=== PATIENT | female | born 1980 | race Caucasian/White ===

== ENCOUNTER 2018-10-29 21:11 | Emergency (ER) | payer OTHER ==
[2018-10-29 22:02] LABS: BILIRUBIN,URINE NEGATIVE (NEGATIVE); KETONES,URINE (UA) NEGATIVE (NEGATIVE); OCCULT BLOOD,URINE SMALL (NEGATIVE); PH,URINE 5.5 PH (5.0-7.5); PROTEIN,URINE 30 mg/dL (NEGATIVE)
[2018-10-29 22:05] LABS: HCG UR QUAL NEGATIVE
[2018-10-29 22:09] LABS: BASOPHILS % (AUTO) 0.3 %; HGB - HEMOGLOBIN 14.7 g/dL (12.0-16.0); LYMPHOCYTES # (AUTO) 0.6 10^3/uL (1.5-3.5); MEAN CORPUSCULAR HEMOGLOBIN 29.4 pg (27.0-31.0); MEAN CORPUSCULAR HGB CONC 33.3 g/dL (32.0-36.0); MEAN CORPUSCULAR VOLUME 88.5 fL (81.0-99.0); MEAN PLATELET VOLUME 8.7 fL (7.9-10.8); MONOCYTES # (AUTO) 0.9 10^3/uL (0.0-1.0); MONOCYTES % (AUTO) 6.9 %; NEUTROPHILS # (AUTO) 11.1 10^3/uL (1.5-6.6); NEUTROPHILS % (AUTO) 87.8 %; PLT - PLATELET COUNT 234 10^3/uL (130-450); RED BLOOD COUNT 4.98 10^6/uL (4.20-5.40); RED CELL DISTRIBUTION WIDTH 14.2 % (12.0-15.0); WHITE BLOOD COUNT 12.6 x10^3/uL (4.8-10.8)
[2018-10-29 22:13] LABS: CLARITY,URINE CLEAR (CLEAR)
[2018-10-29 22:16] LABS: BACTERIA,URINE Rare /HPF (None Seen); RBC,URINE 0-5 /HPF (0-5); SQUAMOUS EPITHELIAL CELL,UR MOD Squamous (<= Few)
[2018-10-29 22:24] LABS: ALBUMIN 4.1 g/dL (3.2-5.5); ALBUMIN/GLOBULIN RATIO 1.1 (1.0-2.2); CALCIUM 9.9 mg/dL (8.5-10.3); CREATININE 0.7 mg/dL (0.4-1.0); TOTAL PROTEIN 7.7 g/dL (6.7-8.2)
[2018-10-29] MEDS ORDERED: HYDROmorphone 1 MG/ML CARPUJECT IVP STA (22:42)
[2018-10-29] MEDS ORDERED: ONDANSETRON 4 MG/2 ML VIAL IVP STA (22:42)
--- NOTE | 2018-10-29 22:56 | ED Physician Documentation ---
<Tesha Mclaughlin - Last Filed: 10/29/18 22:53> PD HPI ABD PAIN - Stated complaint Stated Complaint: FEVER - Chief complaint Chief Complaint: Abd Pain - History obtained from History obtained from: Patient, Family - History of Present Illness Timing - onset: Other (since 3am last night, started suddenly and gradually worsened) Timing - duration: Hours (18) Timing - details: Abrupt onset, Constant Pain level max: 6 Pain level now: 6 Severity Comments: moderate severity Quality: Aching, Sharp, Pain Location: RLQ Radiation: No: Chest, , Lower back, Left flank, Left shoulder, Right flank, Right shoulder, Upper back Improved by: Laying still Worsened by: Moving, Position, Palpation Associated symptoms: Fever (of 103), Nausea, Vomiting (vomited one time). No: Hematemesis, Diarrhea, Hematochezia, Dysuria, Vaginal bleeding, Vaginal dc Similar symptoms before: Has not had sx before Recently seen: Not recently seen - Additional information Additional information: No prior abdominal surgeries. Denies Review of Systems Ten Systems: 10 systems reviewed and negative Constitutional: reports: Fever. denies: Chills Respiratory: denies: Dyspnea GI: reports: Abdominal Pain, Nausea, Vomiting. 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 HEENT: None Psych: None Musculoskeletal: None Derm: None - Past Surgical History Past Surgical History: No - Present Medications Home Medications: Ambulatory Orders Medication Instructions Recorded Confirmed Ibuprofen [Motrin] 600 mg PO Q6H PRN #30 tab 10/30/18 Sulfamethox/Trimeth 800/160 1 each PO BID #20 tablet 10/30/18 [Bactrim Ds 800/160] - Allergies Allergies/Adverse Reactions: Allergies Allergy/AdvReac Type Severity Reaction Status Date / Time No Known Drug Allergies Allergy Verified 10/29/18 21:28 - Social History Does the pt smoke?: No Smoking Status: Never smoker Does the pt drink ETOH?: Yes ETOH Use: Wine Does the pt have substance abuse?: No - Immunizations Immunizations are current?: No Immunizations: TDAP current <10years - POLST Patient has POLST: No PD ED PE NORMAL - General General: Alert and oriented X 3 - HEENT HEENT: Atraumatic, Pharynx benign - Neck Neck: Supple, no meningeal sign - Cardiac Cardiac: RRR - Respiratory Respiratory: No respiratory distress - Abdomen Abdomen: Soft - Female Female : Deferred - Rectal Rectal: Deferred - Derm Derm: Normal color, Warm and dry, No rash - Extremities Extremities: No deformity, No edema - Neuro Neuro: Alert and oriented X 3 Eye Opening: Spontaneous Motor: Obeys Commands Verbal: Oriented GCS Score: 15 - Psych Psych: Normal mood, Normal affect PD ED PE EXPANDED - Abdomen Abdomen: Normal Bowel sounds, Tender to palpation (moderate ), RLQ. No: Distended, Rebound, Guarding Results - Vitals Vitals: tachycardic - Labs Labs: Leukocytosis present, negative UA PD MEDICAL DECISION MAKING - ED course Complexity details: reviewed results, considered differential ED course: ddx - appendicitis, diverticulitis, cholelithiasis, cholecystitis, kidney stone, UTI, PID, ovarian torsion, TOA 38 y/o F with RLQ pain, nausea, vomiting and fever without symptoms suspicious for appendicitis. Labs show leukocytosis, UA contaminated but neg for UTI. Given analgesics zofran, pt npo, fluids and will obtain CT. Signed out pt care to Dr Nuñez with imaging pending. Departure - Departure Disposition: 01 Home, Self Care Clinical Impression: Pyelonephritis Condition: Good Instructions: ED Kidney Infec Female Follow-Up: [facility] [Provider Group] Prescriptions: Ibuprofen [Motrin] 600 mg PO Q6H PRN #30 tab PRN Reason: Pain Sulfamethox/Trimeth 800/160 [Bactrim Ds 800/160] 1 each PO BID #20 tablet Comments: Drink lots of water. Start the Bactrim antibiotic in the morning 1 tablet twice a day for 10 days. Take Motrin 600 mg every 8 hours with food as needed for pain. [place] sure that things are improving. <Agustina Nuñez - Last Filed: 10/30/18 00:13> Results - Vitals Vitals: Vital Signs - 24 hr 10/29/18 10/29/18 21:13 23:02 Temperature 36.8 C Heart Rate 120 H 98 Respiratory 18 16 Rate Blood Pressure 137/81 H 120/78 O2 Saturation 98 97 Oxygen O2 Source Room air - Labs Labs: Laboratory Tests 10/29/18 10/29/18 10/29/18 21:40 21:41 22:05 WBC 12.6 H RBC 4.98 Hgb 14.7 Hct 44.1 MCV 88.5 MCH 29.4 MCHC 33.3 RDW 14.2 Plt Count 234 MPV 8.7 Neut # (Auto) 11.1 H Lymph # (Auto) 0.6 L [place] # (Auto) 0.9 Eos # (Auto) 0.0 Baso # (Auto) 0.0 Absolute Nucleated RBC 0.00 Nucleated RBC % 0.0 Sodium Potassium Chloride Carbon Dioxide Anion Gap BUN Creatinine Estimated GFR (MDRD) Glucose Calcium Total Bilirubin AST ALT Alkaline Phosphatase Total Protein Albumin Globulin Albumin/Globulin Ratio Lipase Urine Color DK. ORANGE Urine Clarity CLEAR Urine pH 5.5 Ur Specific [place] 1.020 1.020 Urine Protein 30 H Urine Glucose (UA) Urine Ketones NEGATIVE Urine Occult Blood SMALL H Urine Nitrite Urine Bilirubin NEGATIVE Urine Urobilinogen Ur Leukocyte Esterase Urine RBC 0-5 Urine WBC 0-3 Ur Squamous Epith Cells MOD Squamous H Urine Bacteria Rare Ur Microscopic Review INDICATED Urine Culture Comments NOT INDICATED Urine HCG, Qual NEGATIVE 10/29/18 22:05 WBC RBC Hgb Hct MCV MCH MCHC RDW Plt Count MPV Neut # (Auto) Lymph # (Auto) [place] # (Auto) Eos # (Auto) Baso # (Auto) Absolute Nucleated RBC Nucleated RBC % Sodium 136 Potassium 3.4 L Chloride 104 Carbon Dioxide 20 L Anion Gap 12.0 BUN 10 Creatinine 0.7 Estimated GFR (MDRD) 93 Glucose 138 H Calcium 9.9 Total Bilirubin 1.0 AST 24 ALT 31 Alkaline Phosphatase 91 Total Protein 7.7 Albumin 4.1 Globulin 3.6 Albumin/Globulin Ratio 1.1 Lipase 31 Urine Color Urine Clarity Urine pH Ur Specific [place] Urine Protein Urine Glucose (UA) Urine Ketones Urine Occult Blood Urine Nitrite Urine Bilirubin Urine Urobilinogen Ur Leukocyte Esterase Urine RBC Urine WBC Ur Squamous Epith Cells Urine Bacteria Ur Microscopic Review Urine Culture Comments Urine HCG, Qual
[2018-10-29] MEDS ORDERED: IOVERSOL 320 100 ML VIAL IVP ONE ×2 (22:59→23:17)
[2018-10-29] MEDS ORDERED: SODIUM CHLORIDE 0.9% 1,000 ML IV ONE (22:59)
--- NOTE | 2018-10-29 23:31 | CT Report ---
Reason: abdominal pain, RLQ Procedure Date: 10/29/2018 Accession Number: [id number] / [id number] Procedure: CT - Abdomen/Pelvis W CPT Code: FULL RESULT: EXAM: CT ABDOMEN AND PELVIS EXAM DATE: 10/29/2018 11:19 PM. CLINICAL HISTORY: Abdominal pain, right lower quadrant. COMPARISONS: None. TECHNIQUE: Routine helical CT imaging was performed through the abdomen and pelvis. IV contrast: Yes. Enteric contrast: No. Reconstructions: Coronal and sagittal. In accordance with CT protocol optimization, one or more of the following dose reduction techniques were utilized for this exam: automated exposure control, adjustment of mA and/or KV based on patient size, or use of iterative reconstructive technique. FINDINGS: Lung Bases: Unremarkable. Liver: Fatty. No suspicious masses. Gallbladder/Bile Ducts: Unremarkable. Spleen: Unremarkable. Pancreas: Unremarkable. Adrenal Glands: Unremarkable. Kidneys: Right upper pole heterogeneous hypodensity, consistent with early pyelonephritis. No renal abscess. Right subtle urothelial thickening. No suspicious masses or hydronephrosis. Peritoneal Cavity/Bowel: No bowel obstruction or inflammatory process seen. No free air or significant free fluid. No masses or adenopathy. The appendix is normal. No excessive stool burden. Pelvic Organs: Bladder, uterus, and adnexa appear unremarkable with exception of multiple uterine fibroids measuring up to 5 cm and a cluster of small left ovarian cysts which appear benign. Vasculature: No aneurysms or other significant abnormality. Bones: No significant abnormality. Other: None. IMPRESSION: 1. Early right pyelonephritis. 2. Fibroid uterus. 3. Fatty liver. RADIA
[2018-10-30] MEDS ORDERED: cefTRIAXone 2 GM in SODIUM CHLORIDE 0.9% MINIBAG 100 ML IV STA (00:09)
[2018-10-30] MEDS ORDERED: SODIUM CHLORIDE 0.9% 1,000 ML IV ONE (00:11)
--- NOTE | 2018-10-30 00:11 | ED Physician Documentation ---
ED Addendum - Addendum Addendum: 10/30/18 00:09 Turned over to me by Dr. Mclaughlin to follow-up on CT scan for probable a ppendicitis. Patient had elevated white blood cell count. Minimal white blood cells in her urinalysis but the CT shows no evidence of appendicitis. There is some inflammatory changes around the right kidney consistent with possible early pyelonephritis. These results were discussed with the patient and her . She is feeling better after the pain medications. She does report a history of pyelonephritis in the past. She has not been vomiting at home. She was given 2 g of Rocephin IV here in the emergency department. Will discharge with prescription for Bactrim DS and Motrin. [place] is [place]. states understanding of the discharge instructions.
[2018-10-30 00:56] VITALS: BP 117/72
== END 2018-10-30 01:29 | disposition home or self-care (01) ==
LOC: ED 21:11
DX: N12 Tubulo-interstitial nephritis, not specified as acute or chronic (principal)
CPT/HCPCS: 36415; 74177; 80053; 81001; 81025; 83690; 85025; 96361; 96365; 96375; 99283; J1170; Q9967; 81003; 87086